=== PATIENT | female | born 1945 ===

== ENCOUNTER 2019-03-16 14:23 | Outpatient (CLI) | payer OTHER ==
[~2019-03-16] VITALS: Ht 152.4 cm; Wt 50.8 kg
== END 2019-03-16 14:40 | disposition home or self-care (01) ==
LOC: OFIC 805 14:23
DX: K21.0 Gastro-esophageal reflux disease with esophagitis (principal); R06.02 Shortness of breath

== ENCOUNTER 2023-05-20 11:19 | Outpatient (CLI) | payer OTHER | END 2023-05-20 11:20 | disposition home or self-care (01) | LOC: LAB 11:19 | PROVIDERS: ATTEND Internal Medicine Cardiovascular Disease | DX: J11.1 Influenza due to unidentified influenza virus with other respiratory manifestations (principal); A49.3 Mycoplasma infection, unspecified site; Z20.822 Contact with and (suspected) exposure to COVID-19 ==